=== PATIENT | female | born 1965 | race Caucasian/White ===

== ENCOUNTER 2023-01-29 08:45 | Day surgery (SDC) | payer OTHER ==
[~2023-01-29] VITALS: Ht 160 cm; Wt 79.8 kg
[2023-01-29] MEDS ORDERED: fentaNYL citrate 0.05 MG/ML VIAL ONE (10:14)
[2023-01-29] MEDS ORDERED: MIDAZOLAM 5 MG/5 ML VIAL ONE (10:14)
[2023-01-29] MEDS ORDERED: LIDOCAINE 2% 100 MG/5 ML UJET TP ONE (10:14)
[2023-01-29] MEDS ORDERED: fentaNYL citrate 0.05 MG/ML VIAL IVP ONE (12:25)
== END 2023-01-29 12:10 | disposition home or self-care (01) ==
LOC: MDS 08:45 → MMU 08:47 → MDS 12:10
PROVIDERS: ATTEND Internal Medicine Gastroenterology
DX: Z12.11 Encounter for screening for malignant neoplasm of colon (principal); E11.9 Type 2 diabetes mellitus without complications; F17.210 Nicotine dependence, cigarettes, uncomplicated; Z79.899 Other long term (current) drug therapy
CPT/HCPCS: 82948; J2250; J3010